=== PATIENT | female | born 1960 | race African-American/Black ===

== ENCOUNTER 2018-01-29 14:05 | Inpatient (IN) | payer OTHER, MEDICAID ==
[~2018-01-29] VITALS: Ht 160 cm; Wt 70.3 kg
[~2018-01-29 14:05] MED LIST: ASPI-1073 PO; ATOR20TA65 PO; DIPH25CA83 PO; HYDR-2510 PO; LISI10TA5 PO; LORA2TAB2 PO; METO-539 PO; OMEP40CA34 PO; TRAM50TA3 PO
[2018-01-29] MEDS ORDERED: NITROGLYCERIN 0.4MG TABLET SL SL PRN (15:15)
[2018-01-29] MEDS ORDERED: ASPIRIN 81MG TABLET PO ONE (15:15)
[2018-01-29 15:30] LABS: BASOPHILS % 0.9 % (0.0-2.0); EOSINOPHILS % 1.1 % (0.0-5.0); HEMOGLOBIN. 13.6 g/dL (12.0-16.0); LYMPHOCYTES % 29.1 % (20.0-50.0); MEAN CORPUSCULAR HEMOGLOBIN 30.8 pg (28.0-32.0); MEAN CORPUSCULAR VOLUME 90.9 fL (81.0-99.0); MEAN PLATELET VOLUME 10.2 fl (7.4-10.4); MONOCYTES % 7.7 % (2.0-8.0); NEUTROPHILS % 61.2 % (40.0-76.0); PLATELET 301 x1000/uL (130-400); RED CELL DISTRIBUTION WIDTH 14.6 % (11.6-14.6)
[2018-01-29 15:34] LABS: CHLORIDE 104 mEq/L (98-107)
[2018-01-29] MEDS ORDERED: KCL 20MEQ/100ML PREMIX 100 ML IV ONE (16:15)
[2018-01-29] MEDS ORDERED: POTASSIUM CHLORIDE 20MEQ TABLET SR PO ONE (16:15)
[2018-01-29] MEDS ORDERED: NITROGLYCERIN OINT 1GM/INCH UDPKT TD NR (17:04)
[2018-01-29] MEDS ORDERED: LISINOPRIL 10MG TABLET PO NR (17:05)
[2018-01-29] MEDS ORDERED: METOPROLOL TARTRATE 50MG TABLET PO NR (17:06)
[2018-01-29] MEDS ORDERED: ACETAMINOPHEN 325MG TABLET PO PRN (17:30)
[2018-01-29] MEDS ORDERED: MAGNESIUM/ALUMINUM HYDROXIDE/SIMETHICONE 30ML UDC PO PRN (17:30)
[2018-01-29] MEDS ORDERED: IPRATROPIUM/ALBUTEROL 0.5-3(2.5)MG/3ML NEB INH PRN (17:30)
[2018-01-29] MEDS ORDERED: ONDANSETRON HCL 4MG/2ML INJ IV PRN (17:30)
[2018-01-29] MEDS ORDERED: ACETAMINOPHEN 650MG SUPP PR PRN (17:30)
[2018-01-29] MEDS ORDERED: HYDROCODONE/ACETAMINOPHEN 5/325MG TABLET PO PRN (17:30)
[2018-01-29] MEDS ORDERED: NA PHOS,M-B/NA PHOS,DI-BA ENEMA 118ML PR PRN (17:30)
[2018-01-29 18:07] VITALS: BP 185/94
[2018-01-29] MEDS: CLONIDINE 0.1MG TABLET PO PRN (18:27)
[2018-01-29] MEDS ORDERED: CLON0.2T MT (18:38)
[2018-01-29 20:00] VITALS: BP 158/87
[2018-01-29] MEDS ORDERED: LORA2TAB95 PO (20:55)
[2018-01-29] MEDS ORDERED: ENOXAPARIN 40MG/0.4ML SYR SUBCUT SCH (21:00)
[2018-01-29] MEDS: ATORVASTATIN CALCIUM 20MG TABLET PO SCH (21:08)
[2018-01-29] MEDS: CLOPIDOGREL 75MG TABLET PO SCH (21:08)
[2018-01-29] MEDS: METOPROLOL TARTRATE 50MG TABLET PO SCH (21:09)
[2018-01-29] MEDS: LORAZEPAM 1MG TABLET PO SCH (23:20)
[2018-01-29] MEDS: DIPHENHYDRAMINE 50MG/ML VIAL IV PRN (23:21)
[2018-01-29] MEDS: NITROGLYCERIN OINT 1GM/INCH UDPKT TD SCH (23:21)
[2018-01-30] VITALS: BP_SYST 132; BP_SYST 137; BP_DIAS 79; BP_DIAS 81
[2018-01-30] MEDS ORDERED: MAGNESIUM 1 G PREMIX 100 ML IV NR
[2018-01-30 04:00] VITALS: BP_SYST 137; BP_SYST 140; BP_DIAS 72; BP_DIAS 81; BP_DIAS 82
[2018-01-30 05:45] LABS: BASOPHILS % 0.4 % (0.0-2.0); HEMATOCRIT. 34.6 % (36.0-48.0); HEMOGLOBIN. 11.6 g/dL (12.0-16.0); LYMPHOCYTES % 34.2 % (20.0-50.0); MEAN CORPUSCULAR HEMOGLOBIN 30.8 pg (28.0-32.0); MEAN CORPUSCULAR VOLUME 91.6 fL (81.0-99.0); MEAN PLATELET VOLUME 9.8 fl (7.4-10.4); MONOCYTES % 8.9 % (2.0-8.0); NEUTROPHILS % 54.5 % (40.0-76.0); PLATELET 245 x1000/uL (130-400); RED BLOOD CELL COUNT 3.78 mill/uL (4.2-5.4); RED CELL DISTRIBUTION WIDTH 15.4 % (11.6-14.6)
[2018-01-30] MEDS: OMEPRAZOLE 20MG CAPSULE EXTENDED RELEASE PO SCH (06:08)
[2018-01-30] MEDS: NITROGLYCERIN OINT 1GM/INCH UDPKT TD SCH ×3 (06:09→21:58)
[2018-01-30 06:38] LABS: CHLORIDE 106 mEq/L (98-107)
[2018-01-30 07:15] LABS: CLARITY URINE CLEAR (CLEAR); COLOR URINE YELLOW (YELLOW); KETONES URINE TRACE (NEGATIVE); LEUKOCYTE ESTERASE URINE TRACE (NEGATIVE); NITRITE URINE NEGATIVE (NEGATIVE); OCCULT BLOOD URINE NEGATIVE (NEGATIVE); PH URINE 6.5 (4.5-8.0); PROTEIN URINE NEGATIVE (NEGATIVE); SPECIFIC GRAVITY URINE 1.025 (1.005-1.030)
[2018-01-30 08:00] VITALS: BP_SYST 140; BP_SYST 143; BP_DIAS 78; BP_DIAS 79; BP_DIAS 80
[2018-01-30] MEDS: CLOPIDOGREL 75MG TABLET PO SCH (08:24)
[2018-01-30] MEDS: METOPROLOL TARTRATE 50MG TABLET PO SCH ×2 (08:25→20:45)
[2018-01-30] MEDS: LISINOPRIL 10MG TABLET PO SCH (08:26)
[2018-01-30 08:45] LABS: *AMPHETAMINES SCREEN URINE NEGATIVE (NEGATIVE); *BARBITURATES SCREEN URINE NEGATIVE (NEGATIVE); *BENZODIAZEPINES SCREEN URINE NEGATIVE (NEGATIVE); *COCAINE SCREEN URINE NEGATIVE (NEGATIVE); METHADONE URINE SCREEN NEGATIVE (NEGATIVE)
[2018-01-30 08:46] LABS: CANNABINOID URINE SCREEN NEGATIVE (NEGATIVE); OPIATES URINE SCREEN NEGATIVE (NEGATIVE); PHENCYCLIDINE URINE SCREEN NEGATIVE (NEGATIVE)
[2018-01-30] MEDS ORDERED: POTASSIUM CHLORIDE 20MEQ TABLET SR PO NR ×2 (10:15→20:00)
[2018-01-30] MEDS: CLONIDINE 0.1MG TABLET PO PRN (11:39)
[2018-01-30 12:00] VITALS: BP 169/91
[2018-01-30] MEDS ORDERED: DOCUSATE SODIUM 100MG CAPSULE PO PRN (15:30)
[2018-01-30 20:00] VITALS: BP 169/84
[2018-01-30] MEDS: ATORVASTATIN CALCIUM 20MG TABLET PO SCH (20:45)
[2018-01-30] MEDS: LORAZEPAM 1MG TABLET PO SCH (21:57)
[2018-01-30] MEDS: DIPHENHYDRAMINE 50MG/ML VIAL IV PRN (21:57)
[2018-01-31] VITALS (12 sets, daily range): BP systolic 127–175; BP diastolic 65–91
[2018-01-31] MEDS: OMEPRAZOLE 20MG CAPSULE EXTENDED RELEASE PO SCH (06:14)
[2018-01-31] MEDS: NITROGLYCERIN OINT 1GM/INCH UDPKT TD SCH ×3 (06:20→22:15)
[2018-01-31 06:34] LABS: PROTHROMBIN TIME 10.3 sec (9.1-11.1)
[2018-01-31 07:08] LABS: CHLORIDE 110 mEq/L (98-107)
[2018-01-31] MEDS: LISINOPRIL 10MG TABLET PO SCH (09:00)
[2018-01-31] MEDS: CLOPIDOGREL 75MG TABLET PO SCH (09:00)
[2018-01-31] MEDS: METOPROLOL TARTRATE 50MG TABLET PO SCH ×2 (09:00→20:55)
[2018-01-31 09:22] LABS: BASOPHILS % 0.4 % (0.0-2.0); HEMATOCRIT. 34.8 % (36.0-48.0); HEMOGLOBIN. 11.6 g/dL (12.0-16.0); LYMPHOCYTES % 26.6 % (20.0-50.0); MEAN CORPUSCULAR HEMOGLOBIN 30.8 pg (28.0-32.0); MEAN CORPUSCULAR VOLUME 92.3 fL (81.0-99.0); MONOCYTES % 7.5 % (2.0-8.0); NEUTROPHILS % 63.5 % (40.0-76.0); PLATELET 253 x1000/uL (130-400); RED BLOOD CELL COUNT 3.77 mill/uL (4.2-5.4); RED CELL DISTRIBUTION WIDTH 15.1 % (11.6-14.6)
[2018-01-31] MEDS: CLONIDINE 0.1MG TABLET PO PRN ×2 (09:41→16:16)
[2018-01-31] MEDS: SODIUM CHLORIDE 0.45% 1,000 ML IV SCH ×2 (09:46→16:25)
[2018-01-31] MEDS ORDERED: LIDOCAINE HCL 1% 10 MG/ML 10ML VIAL ONE (12:40)
[2018-01-31] MEDS ORDERED: IOHEXOL-300 100 ML BOTTLE ONE ×2 (12:40→13:21)
[2018-01-31] MEDS ORDERED: MIDAZOLAM HCL 2 MG/2 ML VIAL ONE ×2 (12:51→13:13)
[2018-01-31] MEDS ORDERED: FENTANYL CITRATE/PF 50MCG/ML 2ML VIAL ONE (12:51)
[2018-01-31] MEDS ORDERED: HEPARIN SODIUM 1,000 UNIT/1ML VIAL IV ONE (13:26)
[2018-01-31] MEDS ORDERED: ACETAMINOPHEN 325MG TABLET PO PRN (13:45)
[2018-01-31] MEDS ORDERED: ONDANSETRON HCL 4MG/2ML INJ IV PRN (13:45)
[2018-01-31] MEDS ORDERED: ATROPINE SULFATE 1MG/10ML SYR IV PRN (13:45)
[2018-01-31] MEDS ORDERED: PHENYLEPHRINE 100MCG/ML 10ML VIAL (CATH LAB) IV ONE (14:06)
[2018-01-31] MEDS ORDERED: NICARDIPINE 100MCG/ML 10ML VIAL (CATH LAB) IV ONE (14:06)
[2018-01-31] MEDS ORDERED: NITROGLYCERIN 50MCG/ML 10ML VIAL (CATH LAB) IV ONE (14:06)
[2018-01-31] MEDS ORDERED: ZOLPIDEM TARTRATE 5MG TABLET PO PRN (15:15)
[2018-01-31] MEDS: ATORVASTATIN CALCIUM 20MG TABLET PO SCH (20:55)
[2018-01-31] MEDS: DIPHENHYDRAMINE 50MG/ML VIAL IV PRN (22:14)
[2018-01-31] MEDS: LORAZEPAM 1MG TABLET PO SCH (22:14)
[2018-02-01] VITALS (13 sets, daily range): BP systolic 141–169; BP diastolic 59–103
[2018-02-01] MEDS: SODIUM CHLORIDE 0.45% 1,000 ML IV SCH (05:49)
[2018-02-01] MEDS: OMEPRAZOLE 20MG CAPSULE EXTENDED RELEASE PO SCH (05:49)
[2018-02-01] MEDS: NITROGLYCERIN OINT 1GM/INCH UDPKT TD SCH ×2 (05:50→13:12)
[2018-02-01 07:31] LABS: BASOPHILS % 0.4 % (0.0-2.0); EOSINOPHILS % 2.9 % (0.0-5.0); HEMATOCRIT. 31.6 % (36.0-48.0); HEMOGLOBIN. 10.6 g/dL (12.0-16.0); LYMPHOCYTES % 29.7 % (20.0-50.0); MEAN CORPUSCULAR HEMOGLOBIN 31.3 pg (28.0-32.0); MEAN CORPUSCULAR VOLUME 93.1 fL (81.0-99.0); MEAN PLATELET VOLUME 9.2 fl (7.4-10.4); PLATELET 246 x1000/uL (130-400); RED CELL DISTRIBUTION WIDTH 15.2 % (11.6-14.6)
[2018-02-01 07:48] LABS: CHLORIDE 108 mEq/L (98-107)
[2018-02-01] MEDS: CLOPIDOGREL 75MG TABLET PO SCH (08:43)
[2018-02-01] MEDS: LISINOPRIL 10MG TABLET PO SCH (08:44)
[2018-02-01] MEDS ORDERED: POTASSIUM CHLORIDE 20MEQ TABLET SR PO SCH (08:45)
[2018-02-01] MEDS: METOPROLOL TARTRATE 50MG TABLET PO SCH (08:45)
[2018-02-01] MEDS ORDERED: ASPIRIN 325MG TABLET PO SCH (09:00)
[2018-02-01] MEDS: CLONIDINE 0.1MG TABLET PO PRN (11:11)
== END 2018-02-01 18:05 | disposition home or self-care (01) | DRG 286 ==
LOC: ER 14:05 → EDBEDREQ 16:39 → ENRESERV 16:47 → 5WST 18:16 → 3WST 01-31 14:23
PROVIDERS: ADMIT Internal Medicine; ATTEND Internal Medicine
PROC: 4A023N7 Measurement of Cardiac Sampling and Pressure, Left Heart, Percutaneous Approach (ICD-10-PCS; principal; 2018-01-31)
PROC: B2111ZZ Fluoroscopy of Multiple Coronary Arteries using Low Osmolar Contrast (ICD-10-PCS; 2018-01-31)
PROC: B2151ZZ Fluoroscopy of Left Heart using Low Osmolar Contrast (ICD-10-PCS; 2018-01-31)
DX: T82.855A Stenosis of coronary artery stent, initial encounter (principal); I50.23 Acute on chronic systolic (congestive) heart failure; I25.110 Atherosclerotic heart disease of native coronary artery with unstable angina pectoris; I11.0 Hypertensive heart disease with heart failure; E87.6 Hypokalemia; E66.9 Obesity, unspecified; E78.5 Hyperlipidemia, unspecified; E83.42 Hypomagnesemia; I49.3 Ventricular premature depolarization; I49.1 Atrial premature depolarization; D64.9 Anemia, unspecified; G90.8 Other disorders of autonomic nervous system; K21.9 Gastro-esophageal reflux disease without esophagitis; Y83.8 Other surgical procedures as the cause of abnormal reaction of the patient, or of later complication, without mention of misadventure at the time of the procedure; Y92.89 Other specified places as the place of occurrence of the external cause; Z79.899 Other long term (current) drug therapy; Z79.02 Long term (current) use of antithrombotics/antiplatelets; Z79.82 Long term (current) use of aspirin; Z87.891 Personal history of nicotine dependence; Z98.84 Bariatric surgery status; Z95.5 Presence of coronary angioplasty implant and graft; Z86.73 Personal history of transient ischemic attack (TIA), and cerebral infarction without residual deficits; Z68.27 Body mass index [BMI] 27.0-27.9, adult
CPT/HCPCS: 36415; 70450; 71045; 80048; 80053; 80305; 81003; 83735; 83880; 84132; 84443; 84484; 85025; 85347; 85610; 93005; 93306; 93458; 93571; 93880; 96374; 99291; C1769; C1887; J1200; J1644; J1650; J2250; J2370; J3010; J3475; J3480; J3490; J7040; J7050; Q9967

== ENCOUNTER 2019-10-01 22:35 | Emergency (ER) | payer OTHER, MEDICAID ==
[~2019-10-01] VITALS: Ht 165.1 cm; Wt 65.0 kg
[~2019-10-01 22:35] MED LIST changes: +CLON0.2T MT; +LORA2TAB95 PO; +OMEP40CA12 PO; -OMEP40CA34 PO
[2019-10-02 02:02] VITALS: BP 145/80
[2019-10-05] MEDS ORDERED: CLOP75TA4 PO (06:26)
[2019-10-05] MEDS ORDERED: CLON0.3T PO (06:26)
== END 2019-10-02 02:03 | disposition home or self-care (01) ==
LOC: ER 22:35
DX: S00.83XA Contusion of other part of head, initial encounter (principal); M54.5 Low back pain; M25.562 Pain in left knee; M25.561 Pain in right knee; I11.0 Hypertensive heart disease with heart failure; I50.9 Heart failure, unspecified; V49.69XA Unspecified car occupant injured in collision with other motor vehicles in traffic accident, initial encounter; Y93.89 Activity, other specified; Y92.410 Unspecified street and highway as the place of occurrence of the external cause
CPT/HCPCS: 71045; 72100; 99284

== ENCOUNTER 2019-10-09 20:52 | Inpatient (IN) | payer OTHER, MEDICAID ==
[~2019-10-09] VITALS: Ht 165.1 cm; Wt 76.7 kg
[~2019-10-09 20:52] MED LIST changes: -CLON0.2T MT; +CLON0.3T PO; +CLOP75TA4 PO; -LORA2TAB2 PO; -TRAM50TA3 PO
[2019-10-09] MEDS ORDERED: NITROGLYCERIN 0.4MG TABLET SL SL PRN (21:30)
[2019-10-09 23:05] LABS: BASOPHILS % 0.7 % (0.0-2.0); EOSINOPHILS % 2.2 % (0.0-5.0); HEMATOCRIT. 39.5 % (36.0-48.0); HEMOGLOBIN. 13.4 g/dL (12.0-16.0); LYMPHOCYTES % 34.4 % (20.0-50.0); MEAN CORPUSCULAR HEMOGLOBIN 31.3 pg (28.0-32.0); MEAN PLATELET VOLUME 10.3 fl (7.4-10.4); NEUTROPHILS % 53.7 % (40.0-76.0); PLATELET 244 x1000/uL (130-400); RED CELL DISTRIBUTION WIDTH 16.2 % (11.6-14.6)
[2019-10-09 23:08] LABS: CHLORIDE 108 mEq/L (98-107)
[2019-10-09 23:12] LABS: ETHANOL BLOOD 85 mg/dL
[2019-10-09 23:13] LABS: D-DIMER 0.31 mg/L FEU (<0.50); PARTIAL THROMBOPLASTIN TIME 26.6 sec (23.4-31.0); PROTHROMBIN TIME 10.7 sec (9.6-11.0)
[2019-10-09 23:49] LABS: *AMPHETAMINES SCREEN URINE NEGATIVE (NEGATIVE); *BARBITURATES SCREEN URINE NEGATIVE (NEGATIVE); *BENZODIAZEPINES SCREEN URINE PRESUMTIVE POSITIVE (NEGATIVE); *COCAINE SCREEN URINE NEGATIVE (NEGATIVE); METHADONE URINE SCREEN NEGATIVE (NEGATIVE); OPIATES URINE SCREEN NEGATIVE (NEGATIVE)
[2019-10-09 23:50] LABS: CANNABINOID URINE SCREEN NEGATIVE (NEGATIVE); PHENCYCLIDINE URINE SCREEN NEGATIVE (NEGATIVE)
[2019-10-10] MEDS ORDERED: ASPIRIN 325MG EC TABLET PO ONE (00:30)
[2019-10-10 08:00] VITALS: BP 145/89
[2019-10-10] MEDS ORDERED: ACETAMINOPHEN 325MG TABLET PO PRN (10:15)
[2019-10-10] MEDS ORDERED: ONDANSETRON HCL 4MG/2ML INJ IV PRN (10:15)
[2019-10-10 11:23] VITALS: BP 143/89
[2019-10-10 12:00] VITALS: BP 142/88
[2019-10-10] MEDS: FOLIC ACID 1 MG, THIAMINE HCL 100 MG, MVI, ADULT NO.1 10 ML in DEXTROSE 5% WATER 1,000 ML IV SCH ×4 (13:15)
[2019-10-10] MEDS ORDERED: LISINOPRIL 10MG TABLET PO NR (13:15)
[2019-10-10] MEDS: ENOXAPARIN 40MG/0.4ML SYR SUBCUT SCH (13:16)
[2019-10-10 16:00] VITALS: BP 143/72
[2019-10-10 20:00] VITALS: BP 137/67
[2019-10-10] MEDS: METOPROLOL TARTRATE 50MG TABLET PO SCH (20:23)
[2019-10-10] MEDS: DIPHENHYDRAMINE 25MG CAPSULE PO PRN (20:51)
[2019-10-10] MEDS ORDERED: ATORVASTATIN CALCIUM 20MG TABLET PO SCH (21:00)
[2019-10-10] MEDS ORDERED: LORAZEPAM 1MG TABLET PO SCH (21:00)
[2019-10-10] MEDS: LORAZEPAM 1MG TABLET PO SCH (23:19)
[2019-10-11] VITALS: BP 113/52
[2019-10-11 04:00] VITALS: BP 131/58
[2019-10-11] MEDS: DIPHENHYDRAMINE 25MG CAPSULE PO PRN ×2 (04:22→12:13)
[2019-10-11] MEDS: OMEPRAZOLE 20MG CAPSULE EXTENDED RELEASE PO SCH (06:12)
[2019-10-11 07:23] LABS: BASOPHILS % 0.4 % (0.0-2.0); EOSINOPHILS % 2.9 % (0.0-5.0); HEMATOCRIT. 35.4 % (36.0-48.0); LYMPHOCYTES % 33.7 % (20.0-50.0); MEAN CORPUSCULAR HEMOGLOBIN 30.9 pg (28.0-32.0); MEAN CORPUSCULAR VOLUME 91.3 fL (81.0-99.0); MEAN PLATELET VOLUME 9.8 fl (7.4-10.4); MONOCYTES % 10.9 % (2.0-8.0); NEUTROPHILS % 52.1 % (40.0-76.0); PLATELET 215 x1000/uL (130-400); RED BLOOD CELL COUNT 3.88 mill/uL (4.2-5.4); RED CELL DISTRIBUTION WIDTH 16.5 % (11.6-14.6)
[2019-10-11 07:36] LABS: CHLORIDE 110 mEq/L (98-107)
[2019-10-11 08:00] VITALS: BP 138/74
[2019-10-11] MEDS: LISINOPRIL 10MG TABLET PO SCH (08:09)
[2019-10-11] MEDS: ASPIRIN 81MG TABLET PO SCH (08:10)
[2019-10-11] MEDS: METOPROLOL TARTRATE 50MG TABLET PO SCH ×2 (08:10→20:57)
[2019-10-11] MEDS ORDERED: CLOPIDOGREL 75MG TABLET PO SCH (09:00)
[2019-10-11] MEDS ORDERED: POTASSIUM CHLORIDE 20MEQ TABLET SR PO SCH (10:45)
[2019-10-11] MEDS: ENOXAPARIN 40MG/0.4ML SYR SUBCUT SCH (10:45)
[2019-10-11 12:00] VITALS: BP 145/90
[2019-10-11] MEDS: FOLIC ACID 1 MG, THIAMINE HCL 100 MG, MVI, ADULT NO.1 10 ML in DEXTROSE 5% WATER 1,000 ML IV SCH ×4 (12:05)
[2019-10-11 16:00] VITALS: BP 140/82
[2019-10-11 20:00] VITALS: BP 128/70
[2019-10-11] MEDS: LORAZEPAM 1MG TABLET PO SCH (20:57)
[2019-10-12] VITALS: BP 122/63
[2019-10-12] MEDS: DIPHENHYDRAMINE 25MG CAPSULE PO PRN ×3 (01:10→20:49)
[2019-10-12 04:00] VITALS: BP 151/76
[2019-10-12 06:13] LABS: BASOPHILS % 0.3 % (0.0-2.0); EOSINOPHILS % 2.2 % (0.0-5.0); HEMATOCRIT. 34.7 % (36.0-48.0); HEMOGLOBIN. 11.6 g/dL (12.0-16.0); MEAN CORPUSCULAR HEMOGLOBIN 30.5 pg (28.0-32.0); MEAN CORPUSCULAR VOLUME 91.2 fL (81.0-99.0); MEAN PLATELET VOLUME 9.9 fl (7.4-10.4); MONOCYTES % 8.8 % (2.0-8.0); NEUTROPHILS % 52.7 % (40.0-76.0); PLATELET 224 x1000/uL (130-400); RED BLOOD CELL COUNT 3.81 mill/uL (4.2-5.4); RED CELL DISTRIBUTION WIDTH 16.1 % (11.6-14.6)
[2019-10-12 06:18] LABS: CHLORIDE 109 mEq/L (98-107)
[2019-10-12 06:24] LABS: PHOSPHORUS 2.9 mg/dL (2.5-4.9)
[2019-10-12] MEDS: OMEPRAZOLE 20MG CAPSULE EXTENDED RELEASE PO SCH (06:41)
[2019-10-12 08:00] VITALS: BP 176/85
[2019-10-12] MEDS: METOPROLOL TARTRATE 50MG TABLET PO SCH ×2 (09:10→20:48)
[2019-10-12] MEDS: LISINOPRIL 10MG TABLET PO SCH (09:10)
[2019-10-12] MEDS: ASPIRIN 81MG TABLET PO SCH (09:10)
[2019-10-12 12:00] VITALS: BP 115/81
[2019-10-12] MEDS: ENOXAPARIN 40MG/0.4ML SYR SUBCUT SCH (12:08)
[2019-10-12 16:00] VITALS: BP 155/89
[2019-10-12] MEDS: FOLIC ACID 1 MG, THIAMINE HCL 100 MG, MVI, ADULT NO.1 10 ML in DEXTROSE 5% WATER 1,000 ML IV SCH ×4 (19:00)
[2019-10-12] MEDS ORDERED: MAGNESIUM 2 G PREMIX 50 ML IV NR (20:00)
[2019-10-12] MEDS: LORAZEPAM 1MG TABLET PO SCH (20:48)
[2019-10-12] MEDS ORDERED: POTASSIUM CHLORIDE 20MEQ TABLET SR PO NR (21:00)
[2019-10-12 23:24] VITALS: BP 142/63
[2019-10-13 02:27] VITALS: BP 132/69
[2019-10-13 06:10] VITALS: BP 153/75
[2019-10-13 06:45] LABS: BASOPHILS % 0.5 % (0.0-2.0); EOSINOPHILS % 2.2 % (0.0-5.0); HEMOGLOBIN. 12.5 g/dL (12.0-16.0); LYMPHOCYTES % 35.4 % (20.0-50.0); MEAN CORPUSCULAR HEMOGLOBIN 30.8 pg (28.0-32.0); MEAN CORPUSCULAR VOLUME 91.1 fL (81.0-99.0); MONOCYTES % 8.9 % (2.0-8.0); RED BLOOD CELL COUNT 4.06 mill/uL (4.2-5.4); RED CELL DISTRIBUTION WIDTH 16.5 % (11.6-14.6)
[2019-10-13 07:14] LABS: CHLORIDE 106 mEq/L (98-107)
[2019-10-13 07:19] LABS: PHOSPHORUS 3.7 mg/dL (2.5-4.9)
[2019-10-13] MEDS ORDERED: FAMOTIDINE 20MG TABLET PO SCH (07:20)
[2019-10-13 08:00] VITALS: BP 163/93
[2019-10-13] MEDS: ASPIRIN 81MG TABLET PO SCH (08:52)
[2019-10-13] MEDS: LISINOPRIL 10MG TABLET PO SCH (08:54)
[2019-10-13] MEDS: METOPROLOL TARTRATE 50MG TABLET PO SCH (08:54)
[2019-10-13] MEDS: ENOXAPARIN 40MG/0.4ML SYR SUBCUT SCH (10:40)
[2019-10-13 12:00] VITALS: BP 165/75
[2019-10-13] MEDS ORDERED: HYDRALAZINE 20MG/ML VIAL IV NR (13:30)
[2019-10-13 14:10] VITALS: BP 148/73
[2019-10-13 14:12] VITALS: BP 148/73
== END 2019-10-13 15:10 | disposition home or self-care (01) | DRG 206 ==
LOC: ER 20:52 → MICUSO 23:51 → EDBEDREQTM 23:52 → EDBEDREQ 23:52 → 6WST 10-10 09:18
PROVIDERS: ADMIT Internal Medicine; ATTEND Internal Medicine
DX: M94.0 Chondrocostal junction syndrome [Tietze] (principal); I50.32 Chronic diastolic (congestive) heart failure; I25.10 Atherosclerotic heart disease of native coronary artery without angina pectoris; I11.0 Hypertensive heart disease with heart failure; I49.1 Atrial premature depolarization; I16.0 Hypertensive urgency; E87.6 Hypokalemia; E78.5 Hyperlipidemia, unspecified; E83.42 Hypomagnesemia; E87.8 Other disorders of electrolyte and fluid balance, not elsewhere classified; R74.0 Nonspecific elevation of levels of transaminase and lactic acid dehydrogenase [LDH]; F10.129 Alcohol abuse with intoxication, unspecified; I36.1 Nonrheumatic tricuspid (valve) insufficiency; Y90.4 Blood alcohol level of 80-99 mg/100 ml; Z86.73 Personal history of transient ischemic attack (TIA), and cerebral infarction without residual deficits; Z79.899 Other long term (current) drug therapy; Z82.3 Family history of stroke; Z82.49 Family history of ischemic heart disease and other diseases of the circulatory system; Z87.891 Personal history of nicotine dependence; Z95.5 Presence of coronary angioplasty implant and graft; Z98.84 Bariatric surgery status; Z79.82 Long term (current) use of aspirin
CPT/HCPCS: 36415; 71045; 80048; 80053; 80305; 80320; 82962; 83735; 83880; 84100; 84484; 85025; 85379; 93005; 99285; J0360; J1650; J3411; J3475; J3490; J7070; Q0163; G0480

== ENCOUNTER 2019-12-08 01:24 | Emergency (ER) | payer OTHER, MEDICAID ==
[~2019-12-08] VITALS: Ht 162.6 cm; Wt 73.0 kg
[~2019-12-08 01:24] MED LIST changes: -CLON0.3T PO
[2019-12-08 01:33] VITALS: BP 117/84
[2019-12-08] MEDS ORDERED: ACETAMINOPHEN 325MG TABLET PO ONE (02:30)
[2020-01-06] MEDS ORDERED: ATOR20TA MT (12:47)
[2020-01-06] MEDS ORDERED: CLOP75TA4 MT (12:47)
[2020-01-06] MEDS ORDERED: AMLO10TA4 MT (12:47)
[2020-01-06] MEDS ORDERED: METO25TA6 PO (12:47)
[2020-01-06] MEDS ORDERED: ASPI-1497 MT (12:47)
[2020-01-06] MEDS ORDERED: KEPP250 MT (12:47)
[2020-01-06] MEDS ORDERED: LISI-604 MT (12:47)
== END 2019-12-08 03:51 | disposition home or self-care (01) ==
LOC: ER 01:24
DX: S00.83XA Contusion of other part of head, initial encounter (principal); W01.198A Fall on same level from slipping, tripping and stumbling with subsequent striking against other object, initial encounter; Y93.89 Activity, other specified; Y92.89 Other specified places as the place of occurrence of the external cause
CPT/HCPCS: 99285

== ENCOUNTER 2022-08-05 08:41 | Inpatient (IN) | payer OTHER, MEDICAID ==
[~2022-08-05] VITALS: Ht 160 cm; Wt 63.5 kg
[~2022-08-05 08:41] MED LIST changes: +AMLO10TA4 MT; +ASPI-1497 MT; +ATOR20TA MT; +CLOP-31 MT; +CLOP-31 PO; -CLOP75TA4 PO; -HYDR-2510 PO; +HYDR50TA PO; +KEPP250 MT; +LISI10TA26 PO; -LISI10TA5 PO; +LISI20TA31 MT; -METO-539 PO; +METO25TA6 PO; -OMEP40CA12 PO; +OMEP40CA20 PO
[2022-08-05] MEDS ORDERED: ONDANSETRON 4MG ODT PO ONE (09:30)
[2022-08-05] MEDS ORDERED: FAMOTIDINE 20MG TABLET PO ONE (09:30)
[2022-08-05] MEDS ORDERED: MAGNESIUM/ALUMINUM HYDROXIDE/SIMETHICONE 30ML UDC PO ONE (09:30)
[2022-08-05 10:18] LABS: BASOPHILS % 0.2 % (0.0-2.0); EOSINOPHILS % 1.2 % (0.0-5.0); HEMATOCRIT. 40.6 % (36.0-48.0); HEMOGLOBIN. 13.7 g/dL (12.0-16.0); LYMPHOCYTES % 23.3 % (20.0-50.0); MEAN CORPUSCULAR HEMOGLOBIN 31.9 pg (28.0-32.0); MEAN CORPUSCULAR VOLUME 94.4 fL (81.0-99.0); MEAN PLATELET VOLUME 9.5 fl (7.4-10.4); MONOCYTES % 6.5 % (2.0-8.0); NEUTROPHILS % 68.8 % (40.0-76.0); PLATELET 267 x1000/uL (130-400); RED CELL DISTRIBUTION WIDTH 14.5 % (11.6-14.6)
[2022-08-05 10:23] LABS: CHLORIDE 104 mEq/L (98-107)
[2022-08-05] MEDS ORDERED: POTASSIUM CHLORIDE 20MEQ/PACKET PO NR (11:15)
[2022-08-05] MEDS ORDERED: SODIUM CHL 0.9% + KCL 20MEQ/L 1,000 ML IV SCH (13:00)
[2022-08-05] MEDS ORDERED: ONDANSETRON HCL 4MG/2ML INJ IV PRN (16:45)
[2022-08-05] MEDS ORDERED: ACETAMINOPHEN 325MG TABLET PO PRN (16:45)
[2022-08-05 17:39] VITALS: BP 151/98
[2022-08-05] MEDS: DEXT 5%/0.45% NACL 1000ML 1,000 ML IV SCH (17:50)
[2022-08-05 18:01] VITALS: BP 151/98
[2022-08-05 19:07] LABS: HEPATITIS B SURFACE ANTIGEN NEGATIVE
[2022-08-05 20:00] VITALS: BP 119/95
[2022-08-06 00:05] VITALS: BP 132/90
[2022-08-06 04:00] VITALS: BP 159/82
[2022-08-06] MEDS: DEXT 5%/0.45% NACL 1000ML 1,000 ML IV SCH (05:22)
[2022-08-06 08:00] VITALS: BP 157/100
[2022-08-06 08:35] LABS: CHLORIDE 109 mEq/L (98-107)
[2022-08-06] MEDS ORDERED: LORAZEPAM 2 MG PO PRN (10:45)
[2022-08-06] MEDS ORDERED: LISINOPRIL 20MG TABLET PO SCH (10:45)
[2022-08-06] MEDS ORDERED: ASPIRIN 81MG EC TABLET PO SCH (10:45)
[2022-08-06] MEDS ORDERED: LEVETIRACETAM 250MG TABLET PO SCH (10:45)
[2022-08-06] MEDS ORDERED: MEDICATION NOT ON FORMULARY EA (Omeprazole 40 MG) PO SCH (10:45)
[2022-08-06] MEDS ORDERED: AMLODIPINE 10MG TABLET PO SCH (10:45)
[2022-08-06] MEDS ORDERED: DIPHENHYDRAMINE 25MG CAPSULE PO PRN (10:45)
[2022-08-06] MEDS ORDERED: CLOPIDOGREL 75MG TABLET PO SCH (10:45)
[2022-08-06] MEDS ORDERED: HYDROCHLOROTHIAZIDE 50 MG PO SCH (10:45)
[2022-08-06] MEDS ORDERED: LORAZEPAM 1MG TABLET PO PRN (11:00)
[2022-08-06] MEDS ORDERED: OMEPRAZOLE 20MG CAPSULE EXTENDED RELEASE PO SCH (11:00)
[2022-08-06] MEDS ORDERED: HYDROCHLOROTHIAZIDE 25MG TABLET PO SCH (11:00)
[2022-08-06] MEDS ORDERED: METOPROLOL TARTRATE 25MG TABLET PO SCH (11:00)
[2022-08-06 12:00] VITALS: BP 156/96
[2022-08-06] MEDS ORDERED: MAGNESIUM OXIDE 400MG TABLET PO SCH (13:15)
[2022-08-06] MEDS ORDERED: ATORVASTATIN CALCIUM 20MG TABLET PO SCH (21:00)
== END 2022-08-06 13:30 | disposition left against medical advice (07) | DRG 641 ==
LOC: ER 08:56 → EDBEDREQSVC 14:13 → 7WST 17:09
PROVIDERS: ADMIT Internal Medicine; ATTEND Internal Medicine
DX: E87.6 Hypokalemia (principal); I25.10 Atherosclerotic heart disease of native coronary artery without angina pectoris; K52.9 Noninfective gastroenteritis and colitis, unspecified; E11.9 Type 2 diabetes mellitus without complications; I10 Essential (primary) hypertension; Z53.29 Procedure and treatment not carried out because of patient's decision for other reasons; Z86.73 Personal history of transient ischemic attack (TIA), and cerebral infarction without residual deficits; Z79.899 Other long term (current) drug therapy; N63.0 Unspecified lump in unspecified breast
CPT/HCPCS: 36415; 71045; 80048; 80053; 83735; 84484; 85025; 86803; 87340; 93005; 99285; J3480; Q0162

== ENCOUNTER 2022-12-23 12:29 | Emergency (ER) | payer OTHER, MEDICAID ==
[~2022-12-23] VITALS: Ht 162.6 cm; Wt 65.0 kg
[~2022-12-23 12:29] MED LIST changes: -ASPI-1497 MT; -ATOR20TA MT; -CLOP-31 MT; -LISI20TA31 MT
[2022-12-23 12:42] VITALS: TEMP 98.2; O2SAT 100
[2022-12-23 13:23] LABS: BASOPHILS % 0.1 % (0.0-2.0); HEMATOCRIT. 42.6 % (36.0-48.0); HEMOGLOBIN. 13.9 g/dL (12.0-16.0); LYMPHOCYTES % 10.6 % (20.0-50.0); MEAN CORPUSCULAR HEMOGLOBIN 32.1 pg (28.0-32.0); MEAN CORPUSCULAR HGB CONC 32.6 g/dL (31.0-37.0); MEAN CORPUSCULAR VOLUME 98.3 fL (81.0-99.0); MEAN PLATELET VOLUME 8.8 fl (7.4-10.4); MONOCYTES % 6.5 % (2.0-8.0); NEUTROPHILS % 82.8 % (40.0-76.0); PLATELET 259 x1000/uL (130-400); RED BLOOD CELL COUNT 4.33 mill/uL (4.2-5.4); RED CELL DISTRIBUTION WIDTH 17.1 % (11.6-14.6); WHITE BLOOD COUNT 10.7 x1000/uL (4.5-11.0)
[2022-12-23 13:34] LABS: CHLORIDE 105 mEq/L (98-107); INDEX HEMOLYSI 2 (1-3); INDEX ICTERIC 1 (1-4); INDEX LIPEMIC 1 (1-3); POTASSIUM 2.9 mEq/L (3.5-5.1); SODIUM 137 mEq/L (136-145)
[2022-12-23 13:43] LABS: ALANINE AMINOTRANSFERASE 30 IU/L (13-61); ALBUMIN 3.4 g/dL (3.4-5.0); ASPARTATE AMINOTRANSFERASE 26 IU/L (15-37); BILIRUBIN TOTAL 0.8 mg/dL (0.1-1.0); CALCIUM 8.6 mg/dL (8.5-10.1); CREATININE 0.7 mg/dL (0.6-1.3); GLUCOSE 129 mg/dL (70-105); NT PRO B-TYPE NATRIURETIC PEP 1268 pg/mL (5-125); PROTEIN TOTAL 7.1 g/dL (6.0-8.3); TROPONIN I HIGH SENSITIVITY 17 ng/L (<54); UREA NITROGEN BLOOD 10 mg/dL (7-21)
[2022-12-23 13:58] LABS: CARBON DIOXIDE 22 mEq/L (21-32)
[2022-12-23] MEDS ORDERED: POTASSIUM CHLORIDE 20MEQ/PACKET PO ONE (14:00)
[2022-12-23] MEDS ORDERED: SODIUM CHL 0.9% + KCL 20MEQ/L 1,000 ML IV SCH (14:00)
[2022-12-23 15:00] VITALS: BP 138/82; PULSE 99; RESP 14
== END 2022-12-23 19:08 | disposition left against medical advice (07) ==
LOC: ER 12:56 → EDBEDREQTM 17:44 → EDBEDREQ 17:44 → ER 19:08
DX: E87.6 Hypokalemia (principal); R07.89 Other chest pain; I10 Essential (primary) hypertension; Z86.73 Personal history of transient ischemic attack (TIA), and cerebral infarction without residual deficits
CPT/HCPCS: 99285; 96365; 71045; 80053; 83880; 85025; 84484; 36415; 93005; J3480

== ENCOUNTER 2023-03-31 19:00 | Emergency (ER) | payer OTHER, MEDICAID ==
[~2023-03-31] VITALS: Ht 172.7 cm; Wt 64.0 kg
[~2023-03-31 19:00] MED LIST changes: +ALBU6.7H15 INH; -AMLO10TA4 MT; +AMLO2.5T45 PO; -ATOR20TA65 PO; +ATOR40TA70 PO; +CLON0.2T PO; -CLOP-31 PO; -DIPH25CA83 PO; +FAMO20TA8 PO; -KEPP250 MT; -LISI10TA26 PO; +LISI20TA31 PO; -LORA2TAB95 PO; +METO-539 PO; -METO25TA6 PO; -OMEP40CA20 PO; +PNV1TABL50 PO; +POTA8TAB70 PO
[2023-03-31 19:03] VITALS: O2SAT 98
[2023-03-31 20:12] LABS: BASOPHILS % 0.5 % (0.0-2.0); EOSINOPHILS % 2.6 % (0.0-5.0); HEMATOCRIT. 35.6 % (36.0-48.0); HEMOGLOBIN. 11.4 g/dL (12.0-16.0); LYMPHOCYTES % 21.1 % (20.0-50.0); MEAN CORPUSCULAR HEMOGLOBIN 31.5 pg (28.0-32.0); MEAN CORPUSCULAR VOLUME 98.4 fL (81.0-99.0); MEAN PLATELET VOLUME 9.9 fl (7.4-10.4); NEUTROPHILS % 68.8 % (40.0-76.0); PLATELET 299 x1000/uL (130-400); RED BLOOD CELL COUNT 3.62 mill/uL (4.2-5.4); RED CELL DISTRIBUTION WIDTH 16.4 % (11.6-14.6); WHITE BLOOD COUNT 8.8 x1000/uL (4.5-11.0)
[2023-03-31 20:20] LABS: INR 1.1
[2023-03-31 20:32] LABS: ALANINE AMINOTRANSFERASE 37 IU/L (10-49); ALBUMIN 4.1 g/dL (3.2-4.8); ASPARTATE AMINOTRANSFERASE 64 IU/L (<34); BILIRUBIN TOTAL 0.4 mg/dL (0.1-1.0); CALCIUM 9.4 mg/dL (8.7-10.4); CARBON DIOXIDE 26 mEq/L (21-32); CHLORIDE 113 mEq/L (98-107); CREATININE 0.8 mg/dL (0.6-1.0); GLUCOSE 85 mg/dL (70-105); POTASSIUM 3.1 mEq/L (3.5-5.1); PROTEIN TOTAL 7.1 g/dL (6.0-8.3); SODIUM 147 mEq/L (136-145); TROPONIN I HIGH SENSITIVITY 14 ng/L (3.0-34); UREA NITROGEN BLOOD 14 mg/dL (9-23)
[2023-03-31 20:37] LABS: ETHANOL BLOOD < 10 mg/dL (<10)
[2023-03-31] MEDS ORDERED: ONDANSETRON 4MG ODT PO ONE (20:45)
[2023-03-31] MEDS ORDERED: MAGNESIUM/ALUMINUM HYDROXIDE/SIMETHICONE 30ML UDC PO ONE (20:45)
[2023-03-31] MEDS ORDERED: FAMOTIDINE 20MG TABLET PO ONE (20:45)
[2023-03-31] MEDS ORDERED: ACETAMINOPHEN 325MG TABLET PO ONE (20:45)
[2023-03-31 21:20] VITALS: TEMP 98.1
[2023-03-31] MEDS ORDERED: FAMO-135 MT (22:48)
[2023-03-31 23:33] VITALS: BP 178/100; PULSE 85; RESP 18
== END 2023-03-31 23:34 | disposition home or self-care (01) ==
LOC: ER 19:00
DX: R10.13 Epigastric pain (principal); I25.2 Old myocardial infarction; I10 Essential (primary) hypertension; Z86.73 Personal history of transient ischemic attack (TIA), and cerebral infarction without residual deficits; Z20.822 Contact with and (suspected) exposure to COVID-19
CPT/HCPCS: 80053; 80320; 83880; 83690; 85025; 85610; 84484; 87804 ×2; 36415; 71045; 74176; 93005; 99285; 87426; Q0162; C9803; G0480

== ENCOUNTER 2023-04-15 05:13 | Emergency (ER) | payer OTHER, MEDICAID ==
[~2023-04-15] VITALS: Ht 162.6 cm; Wt 70.0 kg
[~2023-04-15 05:13] MED LIST changes: +ATOR-2 PO; -ATOR40TA70 PO; +DILT-27 PO; +FAMO-135 MT
[2023-04-15 05:15] VITALS: O2SAT 98
[2023-04-15] MEDS ORDERED: DILTIAZEM HCL 5MG/ML 5ML VIAL IV ONE (06:15)
[2023-04-15 06:35] LABS: BASOPHILS % 0.6 % (0.0-2.0); EOSINOPHILS % 3.5 % (0.0-5.0); HEMOGLOBIN. 12.1 g/dL (12.0-16.0); LYMPHOCYTES % 25.2 % (20.0-50.0); MEAN CORPUSCULAR HEMOGLOBIN 30.4 pg (28.0-32.0); MEAN CORPUSCULAR HGB CONC 31.9 g/dL (31.0-37.0); MEAN CORPUSCULAR VOLUME 95.3 fL (81.0-99.0); MEAN PLATELET VOLUME 8.9 fl (7.4-10.4); NEUTROPHILS % 61.7 % (40.0-76.0); PLATELET 337 x1000/uL (130-400); RED BLOOD CELL COUNT 3.99 mill/uL (4.2-5.4); RED CELL DISTRIBUTION WIDTH 15.6 % (11.6-14.6); WHITE BLOOD COUNT 6.5 x1000/uL (4.5-11.0)
[2023-04-15] MEDS ORDERED: DILTIAZEM HCL 5MG/ML 5ML VIAL IV NR (06:45)
[2023-04-15 06:51] LABS: ALANINE AMINOTRANSFERASE 26 IU/L (10-49); ALBUMIN 4.4 g/dL (3.2-4.8); ASPARTATE AMINOTRANSFERASE 28 IU/L (<34); BILIRUBIN TOTAL 0.3 mg/dL (0.1-1.0); CALCIUM 9.9 mg/dL (8.7-10.4); CARBON DIOXIDE 26 mEq/L (21-32); CHLORIDE 108 mEq/L (98-107); CREATININE 0.7 mg/dL (0.6-1.0); GLUCOSE 89 mg/dL (70-105); POTASSIUM 3.2 mEq/L (3.5-5.1); PROTEIN TOTAL 7.6 g/dL (6.0-8.3); SODIUM 144 mEq/L (136-145); TROPONIN I HIGH SENSITIVITY 13 ng/L (3.0-34); UREA NITROGEN BLOOD 15 mg/dL (9-23)
[2023-04-15 06:54] LABS: ETHANOL BLOOD < 10 mg/dL (<10)
[2023-04-15 07:30] VITALS: TEMP 98.4
[2023-04-15 10:07] LABS: TROPONIN I HIGH SENSITIVITY 11 ng/L (3.0-34)
[2023-04-15 16:04] VITALS: BP 137/90; PULSE 84; RESP 20
== END 2023-04-15 16:10 | disposition home or self-care (01) ==
LOC: ER 05:13
DX: I48.91 Unspecified atrial fibrillation (principal); I10 Essential (primary) hypertension; I25.10 Atherosclerotic heart disease of native coronary artery without angina pectoris; I25.2 Old myocardial infarction; Z79.899 Other long term (current) drug therapy
CPT/HCPCS: 80053; 80320; 83880; 85025; 84484; 36415; 71045; 93005; 96374; 99291; J3490; G0480

== ENCOUNTER 2023-04-20 19:48 | Emergency (ER) | payer OTHER, MEDICAID ==
[~2023-04-20] VITALS: Ht 165.1 cm; Wt 74.0 kg
[2023-04-20 19:52] VITALS: BP 165/94; PULSE 88; RESP 18; TEMP 98.7; O2SAT 98
[2023-04-20 20:57] LABS: BASOPHILS % 0.6 % (0.0-2.0); EOSINOPHILS % 3.8 % (0.0-5.0); HEMATOCRIT. 39.8 % (36.0-48.0); HEMOGLOBIN. 12.6 g/dL (12.0-16.0); LYMPHOCYTES % 25.6 % (20.0-50.0); MEAN CORPUSCULAR HEMOGLOBIN 30.5 pg (28.0-32.0); MEAN CORPUSCULAR HGB CONC 31.6 g/dL (31.0-37.0); MEAN CORPUSCULAR VOLUME 96.4 fL (81.0-99.0); MEAN PLATELET VOLUME 9.1 fl (7.4-10.4); MONOCYTES % 9.9 % (2.0-8.0); NEUTROPHILS % 60.1 % (40.0-76.0); PLATELET 286 x1000/uL (130-400); RED BLOOD CELL COUNT 4.13 mill/uL (4.2-5.4); RED CELL DISTRIBUTION WIDTH 15.2 % (11.6-14.6); WHITE BLOOD COUNT 6.8 x1000/uL (4.5-11.0)
[2023-04-20 21:06] LABS: ALANINE AMINOTRANSFERASE 25 IU/L (10-49); ALBUMIN 4.1 g/dL (3.2-4.8); ASPARTATE AMINOTRANSFERASE 25 IU/L (<34); BILIRUBIN TOTAL 0.3 mg/dL (0.1-1.0); CALCIUM 9.5 mg/dL (8.7-10.4); CARBON DIOXIDE 26 mEq/L (21-32); CHLORIDE 109 mEq/L (98-107); CREATININE 0.6 mg/dL (0.6-1.0); GLUCOSE 85 mg/dL (70-105); POTASSIUM 3.4 mEq/L (3.5-5.1); PROTEIN TOTAL 7.4 g/dL (6.0-8.3); SODIUM 143 mEq/L (136-145); TROPONIN I HIGH SENSITIVITY 14 ng/L (3.0-34); UREA NITROGEN BLOOD 13 mg/dL (9-23)
[2023-04-20 21:16] LABS: ETHANOL BLOOD < 10 mg/dL (<10)
[2023-04-20] MEDS ORDERED: POTASSIUM CHLORIDE 10MEQ TABLET SR PO ONE (21:30)
== END 2023-04-20 21:58 | disposition home or self-care (01) ==
LOC: ER 19:48
DX: R07.89 Other chest pain (principal); I48.91 Unspecified atrial fibrillation; J45.909 Unspecified asthma, uncomplicated; I10 Essential (primary) hypertension; Z86.73 Personal history of transient ischemic attack (TIA), and cerebral infarction without residual deficits; Z79.899 Other long term (current) drug therapy; Z79.82 Long term (current) use of aspirin
CPT/HCPCS: 36415; 71045; 80053; 80320; 83880; 84484; 85025; 93005; 99285; G0480